=== PATIENT | male | born 1945 | race Hispanic/Latino ===

== ENCOUNTER 2019-04-21 22:58 | Inpatient (IN) | payer OTHER, MEDICARE | END 2019-04-25 12:20 | disposition home or self-care (01) | LOC: EDH 22:58 → 4CH 04-24 10:00 → EDHIP 04-22 01:42 → 4CH 04-22 02:17 | DX: R07.89 Other chest pain (principal); I10 Essential (primary) hypertension; E83.42 Hypomagnesemia; E66.9 Obesity, unspecified; E11.65 Type 2 diabetes mellitus with hyperglycemia; E11.51 Type 2 diabetes mellitus with diabetic peripheral angiopathy without gangrene; Z68.33 Body mass index [BMI] 33.0-33.9, adult ==

== ENCOUNTER → 2020-03-30 | Outpatient (CLI) | payer OTHER ==
[~2020-03-30] MED LIST: ATOR10 PO; ERGO500014 PO; GABA-529 PO; GEMF600T5 PO; GLIP2.5T2 PO; HYDR-4064 PO; INSLAN SQ; METF500S7 PO; METO50 PO; Nitroglycerin 0.4MG Sl Tab SL; RAMI10CA69 PO
== END | disposition home or self-care (01) ==
LOC: SHCH 08:32
PROVIDERS: ATTEND Internal Medicine Cardiovascular Disease
DX: R60.0 Localized edema (principal)
CPT/HCPCS: 93970

== ENCOUNTER → 2023-03-06 | Outpatient (CLI) | payer OTHER ==
[~2023-03-06] MED LIST changes: -GEMF600T5 PO; +GEMF600T89 PO; -METF500S7 PO; +METF500S9 PO
== END | disposition home or self-care (01) ==
LOC: SHCH 11:16
PROVIDERS: ATTEND Internal Medicine Cardiovascular Disease
DX: I11.9 Hypertensive heart disease without heart failure (principal); R06.00 Dyspnea, unspecified; E78.5 Hyperlipidemia, unspecified; E11.9 Type 2 diabetes mellitus without complications; Q21.12 Patent foramen ovale
CPT/HCPCS: 93306

== ENCOUNTER → 2023-03-12 | Outpatient (CLI) | payer OTHER ==
[~2023-03-12] MED LIST changes: +REGADENOSON 0.4 MG/5 ML PF SYG IVP ONE
== END | disposition home or self-care (01) ==
LOC: SHCH 08:02
PROVIDERS: ATTEND Internal Medicine Cardiovascular Disease
DX: R93.1 Abnormal findings on diagnostic imaging of heart and coronary circulation (principal); I12.9 Hypertensive chronic kidney disease with stage 1 through stage 4 chronic kidney disease, or unspecified chronic kidney disease; E11.22 Type 2 diabetes mellitus with diabetic chronic kidney disease; N18.2 Chronic kidney disease, stage 2 (mild); E78.5 Hyperlipidemia, unspecified; Z79.4 Long term (current) use of insulin; Z79.899 Other long term (current) drug therapy
CPT/HCPCS: 78452; 96374; 93017; J2785; A9500 ×2

== ENCOUNTER 2025-05-30 23:54 | Emergency (ER) | payer OTHER ==
[~2025-05-30] VITALS: Ht 165.1 cm; Wt 78.9 kg
[~2025-05-30 23:54] MED LIST changes: -GLIP2.5T2 PO; +GLIP2.5T23 PO; -RAMI10CA69 PO; +RAMI10CA76 PO; -REGADENOSON 0.4 MG/5 ML PF SYG IVP ONE
--- NOTE | 2025-05-30 23:57 | NUR ---
UA CUP PROVIDED
--- NOTE | 2025-05-31 00:04 | NUR ---
UA COLLECTED AND SENT
[2025-05-31 00:35] LABS: APPEARANCE,URINE CLEAR (CLEAR); GLUCOSE, URINE (UA) >=1000 mg/dL (NEGATIVE); LEUKOCYTE ESTERASE ,URINE NEGATIVE Leu/uL (NEGATIVE); NITRATE,URINE NEGATIVE (NEGATIVE); OCCULT BLOOD,URINE NEGATIVE (NEGATIVE)
[2025-05-31 00:37] LABS: ADD UA MICROSCOPIC YES
--- NOTE | 2025-05-31 01:04 | ERN ---
General Chief Complaint: Penis Problem Stated Complaint: PENIS PAIN Time Seen by MD: 23:56 Time Seen by Midlevel: 23:56 Source: patient History of Present Illness Initial Comments The patient was an 79-year-old male with a past medical history of type 2 diabetes presenting to the emergency department for evaluation of penile itchiness and dysuria. Patient denies any fever, chills, lower back pain, or any other symptoms at this time. Allergies: Coded Allergies: No Known Drug Allergies (Verified Allergy, 09/14/12) Home Meds Active Scripts Clotrimazole (Clotrimazole) 1 % Cream..g., 1 APPL TP BID for 7 Days, #30 GM 0 Refills apply to affected area(s) Prov:ROCCO WRIGHT 05/31/25 Metformin HCl (Metformin HCl) 500 Mg/5 Ml Solution, 500 MG PO BID for 15 Days, ML Prov:NORRIS WILEY NP 04/25/19 [Nitroglycerin 0.4MG Sl Tab] 0.4 MG TAB.SUBL No Conflict Check, 0.4 MG SL PROTOCOL PRN for CHEST PAIN, #10 0 Refills Prov:NORRIS WILEY NP 04/25/19 Metoprolol Tartrate (Lopressor 50Mg Tab) 50 Mg Tab, 50 MG PO BID for 15 Days, TAB Prov:NORRIS WILEY NP 04/25/19 Reported Medications Insulin Glargine,Hum.rec.anlog (Lantus) 100 Units/Ml Inj, 38 UNITS SQ DAILYDINNER, ML 04/22/19 Ergocalciferol (Vitamin D2) (Vitamin D2) 50,000 Unit Capsule, 52114 UNIT PO AD, CAP 2 times weekly 04/22/19 Ramipril (Ramipril) 10 Mg Capsule, 10 MG PO DAILY, CAP 04/22/19 Gemfibrozil (Gemfibrozil) 600 Mg Tablet, 600 MG PO BID, TAB 04/22/19 Glipizide (Glipizide ER) 2.5 Mg Tab.er.24, 2.5 MG PO DAILY 04/22/19 Atorvastatin Calcium (LIPITOR) 10 Mg Tab, 10 MG PO HS, TAB 04/22/19 Gabapentin (Gabapentin) 100 Mg Capsule, 100 MG PO BID, CAP 04/22/19 Hydrocodone/Acetaminophen (Hydrocodon-Acetaminoph 7.5-325) 1 Each Tablet, 1 EACH PO Q6HPRN PRN for PAIN LEVEL 6 TO 10, TAB 04/22/19 Past Medical History Past Medical History: Diabetes-Type II, Hypertension Past Surgical History: Other Surgical History Other: ABD, PELVIC, LEFT LEG ROS Dictation CONSTITUTIONAL: Negative except for HPI HEAD/FACE: Negative except for HPI EENT: Negative except for HPI RESPIRATORY: Negative except for HPI GASTROINTESTINAL/ABDOMINAL: Negative except for HPI GENITOURINARY: Negative except for HPI MUSCULOSKELETAL: Negative except for HPI INTEGUMENTARY: Negative except for HPI NEUROLOGICAL/PSYCH: Negative except for HPI HEMATOLOGIC/LYMPHATIC: Negative except for HPI All Systems Negative, Except as noted above. 13 point review of systems assessed and all negative except for above. Physical Exam Physical Exam Dictation Vital Signs reviewed General Appearance: Alert, oriented x 3, no acute distress, well developed, nourished. Head and Face: non-traumatic. Eyes: PERRL, pink conjunctivas, eyelid no trauma, anterior chamber with arcus senilis. Ears: Pinnas intact and no signs of trauma or erythema ear canals clear and no discharge TM no erythema Nose: No discharge, no bleeding. Oropharynx: Mouth normal, tongue pink, pharynx clear,no erythema, tonsils no exudates, no abscesses noted, mucous membrane moist Neck: Supple, non-tender, no thyromegaly, no masses, no JVD, no bruits Breast:Deferred Chest:No tenderness, no crepitus, no paradoxical movement, no retractions Lungs:Clear, well-ventilated, symmetric, no rales, no wheezing, no rhonchi, no stridor, good breath sounds bilaterally Heart: Regular rate, regular rhythm, no murmur, no gallops Vascular: no peripheral edema, Abdomen: Soft, positive bowel sounds, nondistended, no guarding, nontender, no rebound, no masses no hepatomegaly, no splenomegaly, no Robert's sign, no hernias. Rectal: Deferred Genital: Deferred Neurological: Normal speech, motor function intact, sensory function intact Musculoskeletal: Neck nontender, full range of motion, back nontender, full range of motion, Extremities: nontender, full range of motion Skin: Color pink, dry, no turgor, no rash, no lacerations, no abrasions, no contusions. Lymphatic: Deferred Results Laboratory and Microbiology Lab and Micro Result Laboratory Tests Test 05/31/25 00:04 Urine Color LIGHT-YELLOW (YELLOW) Urine Appearance CLEAR (CLEAR) Urine pH 5.5 (5.0-8.0) Urine Specific [place] 1.016 (1.001-1.031) Urine Protein 30 mg/dL (NEGATIVE) H Urine Glucose (UA) >=1000 mg/dL (NEGATIVE) H Urine Ketones NEGATIVE mg/dL (NEGATIVE) Urine Occult Blood NEGATIVE (NEGATIVE) Urine Nitrate NEGATIVE (NEGATIVE) Urine Bilirubin NEGATIVE mg/dL (NEGATIVE) Urine Urobilinogen 0.2 mg/dL (0.2-1.0) Urine Leukocyte Esterase NEGATIVE Felicita/uL Urine RBC None /HPF (0-1) Urine WBC 0-1 /HPF (0-1) Urine Bacteria None /HPF (None Seen) Labs Reviewed?: Yes MDM MDM: The patient was an 79-year-old male with a past medical history of type 2 diabetes presenting to the emergency department for evaluation of penile itchiness and dysuria. Patient denies any fever, chills, lower back pain, or any other symptoms at this time. On physical examination patient was in no acute distress. Initial vital signs are stable. Genital examination was deferred. Urinalysis obtained for reveals no evidence of infection but does reveal glucosuria. We will treat for Vanessa infection and discharged home with strict return precautions Differential diagnosis: Urinary tract infection, pyelonephritis, candidal penil e infection There are no social concerns with this patient. Prescription drug management Prescriptions will include: Clotrimazole 1% Medical management and examination interpretation discussions were had by me with other qualified healthcare professionals as indicated for the patient's care. ED Course Orders Procedure Category Date Status Time Urinalysis Profile LAB 05/31/25 Complete 00:04 Vital Signs Date Time Temp Pulse Resp B/P (MAP) Pulse Ox O2 Delivery O2 Flow Rate FiO2 05/31/25 01:53 98.1 72 19 158/81 97 Room Air* 0 05/31/25 01:24 98.1 74 17 159/82 96 Room Air* 0 05/31/25 00:10 98.4 79 18 164/77 97 Room Air* 0 05/30/25 23:55 98.4 84 16 179/89 98 Room Air DX & DISP Disposition: Discharge Departure Impression: Primary Impression: Glucosuria Condition: Stable Scripts Clotrimazole (Clotrimazole) 1 % Cream..g. 1 APPL TP BID for 7 Days, #30 GM 0 Refills apply to affected area(s) Prov: ROCCO WRIGHT 05/31/25 Referrals: CARLA WADE (PCP) Time of Disposition: 01:45 I have reviewed the case, and I agree with, Diagnosis and Plan I performed the substantive portion of the visit. I have reviewed and personally made and approve the management plan that is documented in the note by myself or the CHARI. I acknowledge for responsibility for the patient's management plan. ROCCO WRIGHT May 31, 2025 01:04
[2025-05-31] MEDS ORDERED: CLOT15CR23 TP (01:46)
[2025-05-31 01:53] VITALS: BP 158/81; PULSE 72; RESP 19; TEMP 98.1; O2SAT 97
== END 2025-05-31 01:55 | disposition home or self-care (01) ==
LOC: EDH 23:54
DX: R81 Glycosuria (principal); E11.9 Type 2 diabetes mellitus without complications; I10 Essential (primary) hypertension; Z79.84 Long term (current) use of oral hypoglycemic drugs; Z79.899 Other long term (current) drug therapy
CPT/HCPCS: 81001; 99283

== ENCOUNTER 2025-06-20 23:04 | Emergency (ER) | payer OTHER ==
[~2025-06-20] VITALS: Ht 167.6 cm; Wt 83.9 kg
[~2025-06-20 23:04] MED LIST changes: +CLOT15CR23 TP
[2025-06-20 23:05] VITALS: BP 187/98; PULSE 100; RESP 20; TEMP 98.1
--- NOTE | 2025-06-20 23:47 | EKG ---
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
[2025-06-21 00:09] LABS: IMMATURE GRANULOCYTE ABSOLUTE 0.04 K/uL (0-1); NUCLEATED RED BLOOD CELLS 0.0 % (0.0-0.19); PLATELET COUNT (AUTO) 184 K/uL (130-400); RED BLOOD CELL COUNT(AUTO) 4.78 MIL/uL (4.50-6.20); RED CELL DISTRIBUTION WIDTH 13.9 % (11.0-15.5); WHITE BLOOD COUNT (AUTO) 11.4 K/uL (4.8-10.8)
[2025-06-21 00:26] LABS: CREATININE 1.2 mg/dL (0.5-1.3); GLOMERULAR FILTR. RATE CALC 61.0 mL/min (>90); GLUCOSE,RANDOM 163.0 mg/dL (70-105); SODIUM SERUM 142.0 mmol/L (136-145); UREA NITROGEN, BLOOD 19.0 mg/dL (7-18)
--- NOTE | 2025-06-21 00:31 | NUR ---
PER PT AND PT FAMILY. THEY DONT WISH TO CONTINUE CARE. EXPLAINED RISKS. FAMILY VERBALIZED UNDERSTANDING WITH VERBAL TEACHBACK. POLITE .
[2025-06-21 00:32] LABS: CREATINE KINASE, TOTAL 102.0 U/L (21-232)
--- NOTE | 2025-06-21 00:44 | ERN ---
ED Note History of Present Illness Stated Complaint: SHOULDER AND LOWER BACK PAIN Chief Complaint: Back Pain-No Injury Time Seen by MD: 23:28 Time Seen by Midlevel: 23:28 Dictation: The patient is an 79-year-old male with a history of diabetes, hypertension who presents to the emergency department with complaints of bilateral shoulder pain and chest pain and low back pain onset two weeks ago. Patient denies any trauma. Reports he went to his primary doctor and was told he had arthritis. Patient denies any urinary or fecal incontinence, denies any paresthesia. Allergies: Coded Allergies: No Known Drug Allergies (Verified Allergy, 09/14/12) Home Meds Active Scripts Clotrimazole (Clotrimazole) 1 % Cream..g., 1 APPL TP BID for 7 Days, #30 GM 0 Refills apply to affected area(s) Prov:ROCCO WRIGHT 05/31/25 Metformin HCl (Metformin HCl) 500 Mg/5 Ml Solution, 500 MG PO BID for 15 Days, ML Prov:NORRIS WILEY NP 04/25/19 [Nitroglycerin 0.4MG Sl Tab] 0.4 MG TAB.SUBL No Conflict Check, 0.4 MG SL PROTOCOL PRN for CHEST PAIN, #10 0 Refills Prov:NORRIS WILEY NP 04/25/19 Metoprolol Tartrate (Lopressor 50Mg Tab) 50 Mg Tab, 50 MG PO BID for 15 Days, TA B Prov:NORRIS WILEY NP 04/25/19 Reported Medications Insulin Glargine,Hum.rec.anlog (Lantus) 100 Units/Ml Inj, 38 UNITS SQ DAILYDINNER, ML 04/22/19 Ergocalciferol (Vitamin D2) (Vitamin D2) 50,000 Unit Capsule, 26028 UNIT PO AD, CAP 2 times weekly 04/22/19 Ramipril (Ramipril) 10 Mg Capsule, 10 MG PO DAILY, CAP 04/22/19 Gemfibrozil (Gemfibrozil) 600 Mg Tablet, 600 MG PO BID, TAB 04/22/19 Glipizide (Glipizide ER) 2.5 Mg Tab.er.24, 2.5 MG PO DAILY 04/22/19 Atorvastatin Calcium (LIPITOR) 10 Mg Tab, 10 MG PO HS, TAB 04/22/19 Gabapentin (Gabapentin) 100 Mg Capsule, 100 MG PO BID, CAP 04/22/19 Hydrocodone/Acetaminophen (Hydrocodon-Acetaminoph 7.5-325) 1 Each Tablet, 1 EACH PO Q6HPRN PRN for PAIN LEVEL 6 TO 10, TAB 04/22/19 Past Medical History Past Medical History: Diabetes-Type II, Hypertension Surgical History: Other Surgical History Other: ABD, PELVIC, LEFT LEG RN Note Reviewed/Agreed w/PFSH: Yes Review of System Dictation Constitutional: Negative for fever,chills, and weight loss Eyes: Negative for injury, pain,redness, and discharge ENT: Negative for injury,pain or swelling Cardiovascular: Negative for palpitations, and edema positive for chest pain Respiratory: Negative for shortness of breath, cough, and wheezing, Abdomen/GI: Negative for abdominal pain, nausea, vomiting, diarrhea, and constipation Back: Negative for injury and pain : Negative for injury, bleeding and discharge MS/Extremity: Negative for injury and deformity positive for bilateral shoulder pain, low back pain Skin: Negative for rash, and discoloration Neuro: Negative for headache, weakness, numbness, tingling, and seizure Psych: Negative for suicide ideation, homicidal ideation, and hallucinations Initial Vital Sign VS Vital Signs Date Time Temp Pulse Resp B/P (MAP) Pulse Ox O2 Delivery O2 Flow Rate FiO2 06/20/25 23:05 98.1 100 20 187/98 98 Room Air Physical Exam Dictation Vital Signs reviewed General Appearance: Alert, oriented x 3, no acute distress, well developed, nourished. Head and Face: non-traumatic. Eyes: PERRL, pink conjunctivas, eyelid no trauma, anterior chamber with arcus senilis. Ears: Pinnas intact and no signs of trauma or erythema ear canals clear and no discharge TM no erythema Nose: No discharge, no bleeding. Oropharynx: Mouth normal, tongue pink. pharynx clear,no erythema, tonsils no exudates, no abscesses noted, mucous membrane moist Neck: Supple, non-tender, no thyromegaly, no masses, no JVD, no bruits Breast:Deferred Chest:No tenderness, no crepitus, no paradoxical movement, no retractions Lungs:Clear, well-ventilated, symmetric, no rales, no wheezing, no rhonchi, no stridor, good breath sounds bilaterally Heart: Regular rate, regular rhythm, no murmur, no gallops Vascular: no peripheral edema, Abdomen: Soft, positive bowel sounds, nondistended, no guarding, nontender, no rebound, no masses no hepatomegaly, no splenomegaly, no Robert's sign, no hernias. Rectal: Deferred Genital: Deferred Neurological: Normal speech, motor function intact, sensory function intact Musculoskeletal: Neck nontender, full range of motion, back nontender, full range of motion, Extremities: nontender, full range of motion , tenderness to bilateral upper arm Skin: Color pink, dry, no turgor, no rash, no lacerations, no abrasions, no contusions. Lymphatic: Deferred Results (Laboratory/Radiology) Laboratory/Radiology Laboratory Tests Test 06/20/25 23:52 White Blood Count 11.4 K/uL (4.8-10.8) H Red Blood Count 4.78 MIL/uL (4.50-6.20) Hemoglobin 14.4 g/dL (14.0-18.0) Hematocrit 43.3 % (42-54) Mean Corpuscular Volume 90.6 fL (79-99) Mean Corpuscular Hemoglobin 30.1 pg (27.0-33.0) Mean Corpuscular Hemoglobin Concent 33.3 g/dL (32.0-36.0) Red Cell Distribution Width 13.9 % (11.0-15.5) Platelet Count 184 K/uL (130-400) Mean Platelet Volume 10.8 fL (7.5-10.5) H Immature Granulocyte % (Auto) 0.4 % (0-1) Neutrophils (%) (Auto) 82.9 % (40.0-77.0) H Lymphocytes (%) (Auto) 7.9 % (21.0-51.0) L Monocytes (%) (Auto) 7.2 % (3.0-13.0) Eosinophils (%) (Auto) 1.1 % (0.0-8.0) Basophils (%) (Auto) 0.5 % (0.0-5.0) Neutrophils # (Auto) 9.5 K/uL (1.8-7.7) H Lymphocytes # (Auto) 0.9 K/uL (1.0-4.8) L Monocytes # (Auto) 0.8 K/uL (0.1-1.0) Eosinophils # (Auto) 0.12 K/uL (0.00-0.70) Basophils # (Auto) 0.06 K/uL (0.00-0.20) Absolute Immature Granulocyte (auto 0.04 K/uL (0-1) Nucleated Red Blood Cells 0.0 % (0.0-0.19) Sodium Level 142 mmol/L (136-145) Potassium Level 4.1 mmol/L (3.5-5.1) Chloride Level 106 mmol/L (101-111) Carbon Dioxide Level 25 mmol/L (21-32) Blood Urea Nitrogen 19 mg/dL (7-18) H Creatinine 1.2 mg/dL (0.5-1.3) Glomerular Filtration Rate Calc 61 mL/min (>90) Random Glucose 163 mg/dL (70-105) H Total Calcium 8.3 mg/dL (8.5-10.1) L Total Creatine Kinase 102 U/L (21-232) Troponin I High Sensitivity 432 ng/L (4-75) *H Labs Reviewed?: Yes EKG: (+) rhythm (Sinus tachycardia) EKG Comment: Date:06/20/2025 Time:2342 Ventricular rate:100 [place] interval:118 QRS duration:116 QT/QTc:371/481 EKG interpretation: sinus tachycardia Reviewed by ED Attending no STEMI ED Course ED Course Orders Procedure Category Date Status Time Cbc With Differential LAB 06/20/25 In Process 23:34 Chest 1vw RAD 06/20/25 Logged 23:34 12 Lead Ekg Tracing- EKG 06/20/25 Complete Technical 23:34 Creatine Kinase, Total LAB 06/20/25 Complete 23:34 Troponin I High LAB 06/20/25 In Process Sensitivity 23:34 Urinalysis Profile LAB 06/20/25 Logged 23:34 Basic Metabolic Panel LAB 06/20/25 Complete 23:34 Lumbar Spine 2-3vws RAD 06/20/25 Logged 23:34 Ketorolac PHA 06/20/25 Complete Tromethamine 30mg/Ml 23:45 Current Medications Medications (Trade) Dose Ordered Sig/Dominick Route PRN Reason Start Time Stop Time Status Last Admin Dose Admin Ketorolac Tromethamine (toRADol) 30 mg ONCE ONCE IM 06/20/25 23:45 06/20/25 23:46 DC Vital Signs Date Time Temp Pulse Resp B/P (MAP) Pulse Ox O2 Delivery O2 Flow Rate FiO2 06/20/25 23:05 98.1 100 20 187/98 98 Room Air Medical Decision Making MDM The patient is an 79-year-old male with a history of diabetes, hypertension who presents to the emergency department with complaints of bilateral shoulder pain and chest pain and low back pain onset two weeks ago. Patient denies any trauma. Reports he went to his primary doctor and was told he had arthritis. Patient denies any urinary or fecal incontinence, denies any paresthesia. Differential diagnosis: ACS, pneumonia, pneumothorax, arthritis Was informed by nursing staff that patient eloped from ER. DX & DISP Disposition: AMA Departure Condition: Stable Referrals: VENTURA MYERS MD (PCP) I have reviewed the case, and I agree with, Diagnosis and Plan LIZZY CHIANG [facility] Jun 21, 2025 00:44
== END 2025-06-21 00:33 | disposition left against medical advice (07) ==
LOC: EDH 23:04
DX: M25.511 Pain in right shoulder (principal); M25.512 Pain in left shoulder; R07.89 Other chest pain; M54.50 Low back pain, unspecified; E11.9 Type 2 diabetes mellitus without complications; I10 Essential (primary) hypertension; I25.2 Old myocardial infarction; Z79.84 Long term (current) use of oral hypoglycemic drugs; Z79.899 Other long term (current) drug therapy; Z98.890 Other specified postprocedural states; Z53.29 Procedure and treatment not carried out because of patient's decision for other reasons
CPT/HCPCS: 36415; 80048; 82550; 84484; 85025; 93005; 99284